=== PATIENT | male | born 1975 | race Caucasian/White ===

== ENCOUNTER 2020-04-16 19:05 | Inpatient (IN) | payer SELFPAY ==
[~2020-04-16] VITALS: Ht 177.8 cm; Wt 139.3 kg
[2020-04-16 19:34] LABS: BASOPHILS % (AUTO) 0.8 % (0.0-5.0); EOSINOPHILS % (AUTO) 2.3 % (0.0-8.0); HEMATOCRIT 46.8 % (42-54); LYMPHOCYTES % (AUTO) 21.7 % (21.0-51.0); MEAN CORPUSCULAR HEMOGLOBIN 31.2 pg (27.0-33.0); MEAN CORPUSCULAR HGB CONC 35.3 g/dL (32.0-36.0); MEAN CORPUSCULAR VOLUME 88.5 fL (79-99); MONOCYTES % (AUTO) 10.3 % (3.0-13.0); NEUTROPHILS % (AUTO) 64.4 % (40.0-77.0); PLATELET COUNT (AUTO) 145 K/uL (130-400); RED BLOOD CELL COUNT(AUTO) 5.29 MIL/uL (4.50-6.20); RED CELL DISTRIBUTION WIDTH 12.1 % (11.0-15.5); WHITE BLOOD COUNT (AUTO) 8.8 K/uL (4.8-10.8)
[2020-04-16 19:44] LABS: CREATININE 1.1 mg/dL (0.5-1.5)
[2020-04-16 19:49] LABS: ALBUMIN 3.2 g/dL (3.5-5.0); BILIRUBIN,TOTAL 0.6 mg/dL (0.2-1.0); TOTAL PROTEIN, SERUM 7.4 g/dL (6.0-8.3)
[2020-04-16 19:50] LABS: INR 0.98 (0.85-1.15); PROTHROMBIN TIME 10.6 SEC (9.6-11.6)
[2020-04-16] MEDS ORDERED: VANCOMYCIN 1GM+NS 250ML 250 ML IV ONE (19:58)
[2020-04-16] MEDS ORDERED: IOHEXOL-350 50ML VIAL IV ONE (20:15)
[2020-04-16] MEDS ORDERED: ZOLPIDEM TARTRATE 5 MG TAB PO PRN (23:00)
[2020-04-16] MEDS ORDERED: VANCOMYCIN PROTOCOL PER PHARMACY IV PRN (23:00)
[2020-04-16] MEDS ORDERED: DIPHENHYDRAMINE HCL 25 MG CAPSULE PO PRN (23:00)
[2020-04-16] MEDS ORDERED: ONDANSETRON HCL 4 MG/2 ML VIAL IV PRN (23:00)
[2020-04-16] MEDS ORDERED: DiphenhydrAMINE HCL 50 MG/ML VIAL IV PRN (23:00)
[2020-04-16] MEDS ORDERED: HYDRALAZINE HCL 20 MG/ML VIAL IV PRN (23:00)
[2020-04-16] MEDS ORDERED: ACETAMINOPHEN 325 MG TAB PO PRN ×2 (23:00)
[2020-04-16] MEDS ORDERED: LACTULOSE 20 GM/30 ML UDCUP PO PRN (23:00)
[2020-04-16] MEDS ORDERED: ACETAMINOPHEN-CODEINE 300/30MG TAB PO PRN ×2 (23:00)
[2020-04-16] MEDS ORDERED: GUAIFENESIN-DM 200/20 MG 10 ML PO PRN (23:00)
[2020-04-16] MEDS ORDERED: MAG HYDROX/AL HYDROX/SIMETH ES 30 ML SUSP UDCUP PO PRN (23:00)
[2020-04-16] MEDS ORDERED: NITROGLYCERIN 0.4 MG SL TAB SL PRN (23:00)
[2020-04-16 23:15] LABS: HEMOGLOBIN A1C 8.9 % (4.0-6.0)
[2020-04-16] MEDS ORDERED: ZOSYN 3.375GM+NS 50ML 50 ML IV ONE (23:19)
[2020-04-16 23:53] LABS: APPEARANCE,URINE Clear (CLEAR); BILIRUBIN,URINE Negative (NEGATIVE); COLOR,URINE Yellow (YELLOW); GLUCOSE, URINE (UA) >=1000 mg/dL (NEGATIVE); KETONES,URINE Negative (NEGATIVE); LEUKOCYTE ESTERASE ,URINE Negative (NEGATIVE); NITRATE,URINE Negative (NEGATIVE); OCCULT BLOOD,URINE Negative (NEGATIVE); PH,URINE 5.5 (5.0-8.0); PROTEIN,URINE Negative (NEGATIVE)
[2020-04-17] VITALS (7 sets, daily range): BP systolic 118–163; BP diastolic 70–95
[2020-04-17 00:02] LABS: BACTERIA,URINE None Seen /HPF (None Seen); RBC,URINE None Seen /HPF (0-1); SQUAMOUS EPITHELIAL CELL,UR Rare /HPF (0-2); WBC,URINE None Seen /HPF (0-1); YEAST,URINE BUDDING None Seen /HPF (None Seen)
--- NOTE | 2020-04-17 00:15 | NUR ---
ASSESSMENT NOTE PATIENT AWAKE, ALERT, OX3, NO SOB, NO C/O PAIN AT TIME, DRESSING RIGHT POSTERIOR NECK INTACT , REDNESS WITH ENDURATION, NO DRAINAGE NOTED AT THIS TIME, TEACH PLAN OF CARE AND EXPECTED OUTCOME, PATIENT VERBALIZES UNDERSTANDING VIA TEACH BACK
[2020-04-17] MEDS: ZOSYN 3.375GM+NS 50ML 50 ML IV SCH ×3 (04:33→20:34)
[2020-04-17] MEDS ORDERED: COMPOUND IV REFRIGERATED 1 EACH IVSOLN MISC PRN (06:30)
[2020-04-17] MEDS: FAMOTIDINE 20MG TAB 20 MG TAB PO SCH ×2 (08:19→19:26)
[2020-04-17] MEDS: ENOXAPARIN SODIUM 30 MG/0.3 ML SQ SCH (08:20)
--- NOTE | 2020-04-17 08:45 | NUR ---
DR. GONZALEZ AWARE OF CONSULT
--- NOTE | 2020-04-17 08:48 | NUR ---
DR. HENAO AWARE OF CONSULT
[2020-04-17] MEDS: VANCOMYCIN 1.5 GM in SODIUM CHLORIDE 0.9% 250 ML IV SCH ×2 (09:22→19:26)
[2020-04-17] MEDS ORDERED: GLUCAGON 1MG KIT 1 MG ML IM PRN (10:15)
[2020-04-17] MEDS ORDERED: DEXTROSE 50%-WATER 50 ML DISP.SYRIN IV PRN (10:15)
[2020-04-17] MEDS: INSULIN HUMULIN R 100 UNIT/ML 3ML SQ SCH ×3 (11:20→20:31)
--- NOTE | 2020-04-17 13:30 | NUR ---
MET WITH PATIENT AT BEDSIDE FOR DC PLANNING. STATES LIVING "WITH RELATIVES' RIGHT NOW, DECLINED OT GIVE MORE INFO. STATES HIS GIRLFRIEND ON FACE SHEET WILL PROVIDE TRANSPORT ON DISCHARGE. STATES INDEPENDENT, 'VERY ACTIVE', DRIVES. NO DME OR SERVICES. STATES HAS BEEN TOLD IN PAST THAT HE WAS DIABETIC BUT DOES NOT BELIEVE IT. SAYS HE WAS ABLE TO GET HIS SUGAR DOWN IN THE PAST AND CAN DO IT AGAIN DOES NOT HAVE A GLUCOMETER AND RAN OUT OF THE GLYBURIDE HE WAS PRESCRIBED SOME MONTHS AGO. STATES HIS SURGAR IS HIGH BECAUSE HE IS GOING THROUGH A CUSTODY DEE WITH HIS EX AND THAT IS WHY HI SUGAR IS UP. WHEN I SUGGESTED [facility] FOR ASSISTANCE WITH A PLAN AND A GLUCOMETER, PATIENT RAISED HIS VOICE TO CM. PT DECLINED [employer] RESOURCE PACKET. CM EXPLAINED GOOD RX. PATIENT APPEARED NOT TO BE INTERESTED. CM TO FOLLOW UP. , Addendum: 04/17/20 at 1814 by AGA REYNAGA RN CM Amended: Links added.
--- NOTE | 2020-04-17 20:00 | NUR ---
culture anerobic culture obtained from abcess right postrerior neck , minimal drainage obtained of serous purulent drainage, labeled and sent to lab, teach patient plan of care and expected outcome, patient verbalizes understanding via teach back
[2020-04-18 04:00] VITALS: BP 130/65
[2020-04-18] MEDS: ZOSYN 3.375GM+NS 50ML 50 ML IV SCH (04:34)
[2020-04-18] MEDS: INSULIN HUMULIN R 100 UNIT/ML 3ML SQ SCH ×4 (06:09→20:33)
[2020-04-18 06:15] LABS: BASOPHILS % (AUTO) 1.3 % (0.0-5.0); EOSINOPHILS % (AUTO) 3.4 % (0.0-8.0); HEMATOCRIT 47.1 % (42-54); LYMPHOCYTES % (AUTO) 28.1 % (21.0-51.0); MEAN CORPUSCULAR HEMOGLOBIN 30.7 pg (27.0-33.0); MEAN CORPUSCULAR HGB CONC 34.8 g/dL (32.0-36.0); MONOCYTES % (AUTO) 9.2 % (3.0-13.0); NEUTROPHILS % (AUTO) 57.6 % (40.0-77.0); PLATELET COUNT (AUTO) 173 K/uL (130-400); RED BLOOD CELL COUNT(AUTO) 5.35 MIL/uL (4.50-6.20); RED CELL DISTRIBUTION WIDTH 12.2 % (11.0-15.5); WHITE BLOOD COUNT (AUTO) 6.8 K/uL (4.8-10.8)
[2020-04-18 06:38] LABS: CARBON DIOXIDE 25 mmol/L (21-32); CHLORIDE 104 mmol/L (101-111); CREATININE 0.8 mg/dL (0.5-1.5); GLOMERULAR FILTR. RATE CALC 112 mL/min (>60); GLUCOSE,RANDOM 153 mg/dL (70-105); POTASSIUM 3.8 mmol/L (3.5-5.1); SODIUM SERUM 137 mmol/L (136-145); UREA NITROGEN, BLOOD 8 mg/dL (7-18)
[2020-04-18 08:05] VITALS: BP 126/93
--- NOTE | 2020-04-18 08:45 | NUR ---
DR. EARLENE KENT ROUNDING ON PATIENT. SPOKE TO PATIENT AND STATES THAT NO SURGICAL PROCEDURE INDICATED AT THIS TIME AND RECOMMENDS TO CONTINUE ANTIBIOTIC THERAPY.
[2020-04-18] MEDS: FAMOTIDINE 20MG TAB 20 MG TAB PO SCH ×2 (08:52→19:45)
[2020-04-18] MEDS: ENOXAPARIN SODIUM 30 MG/0.3 ML SQ SCH (08:52)
[2020-04-18] MEDS: VANCOMYCIN 1.75 GM in SODIUM CHLORIDE 0.9% 250 ML IV SCH ×2 (09:22→19:45)
[2020-04-18 11:21] VITALS: BP 141/78
[2020-04-18 16:06] VITALS: BP 145/96
[2020-04-18 20:07] VITALS: BP 154/84
[2020-04-18 23:51] VITALS: BP 125/74
[2020-04-19 04:13] VITALS: BP 134/80
[2020-04-19 05:36] LABS: BASOPHILS % (AUTO) 0.9 % (0.0-5.0); EOSINOPHILS % (AUTO) 3.4 % (0.0-8.0); HEMATOCRIT 47.4 % (42-54); LYMPHOCYTES % (AUTO) 30.4 % (21.0-51.0); MEAN CORPUSCULAR HGB CONC 34.8 g/dL (32.0-36.0); MEAN CORPUSCULAR VOLUME 89.1 fL (79-99); NEUTROPHILS % (AUTO) 56.9 % (40.0-77.0); PLATELET COUNT (AUTO) 168 K/uL (130-400); RED BLOOD CELL COUNT(AUTO) 5.32 MIL/uL (4.50-6.20); RED CELL DISTRIBUTION WIDTH 11.9 % (11.0-15.5); WHITE BLOOD COUNT (AUTO) 5.6 K/uL (4.8-10.8)
[2020-04-19 05:45] LABS: CREATININE 0.9 mg/dL (0.5-1.5); POTASSIUM 4.1 mmol/L (3.5-5.1)
[2020-04-19] MEDS: INSULIN HUMULIN R 100 UNIT/ML 3ML SQ SCH ×2 (06:34→11:44)
[2020-04-19 07:44] VITALS: BP 143/84
[2020-04-19] MEDS: FAMOTIDINE 20MG TAB 20 MG TAB PO SCH (08:58)
[2020-04-19] MEDS: VANCOMYCIN 1.75 GM in SODIUM CHLORIDE 0.9% 250 ML IV SCH (08:58)
[2020-04-19] MEDS: ENOXAPARIN SODIUM 30 MG/0.3 ML SQ SCH (09:01)
[2020-04-19] MEDS ORDERED: CEFUROXIME AXETIL 250 MG TABLET PO SCH (10:30)
[2020-04-19] MEDS ORDERED: CEFU500T67 PO (11:32)
[2020-04-19] MEDS ORDERED: GLYB2.5T5 PO (11:32)
[2020-04-19 12:01] VITALS: BP 142/70
--- NOTE | 2020-04-19 12:30 | NUR ---
DISCHARGE DISCHARGE TEACHING PROVIDED TO PATIENT REGARDING RX (CEFUROXIME, GLYBURIDE), CELLULITIS HOME CARE, AND DIABETES MANAGEMENT AND DIET RECOMMENDATIONS. INFORMED PATIENT TO F/U WITH PRIMARY MD IN 7 DAYS FOR CONTINUATION OF CARE. PATIENT DOES NOT HAVE A PRIMARY DOCTOR AT THIS TIME. LIST OF FAMILY DOCTORS PROVIDED TO PATIENT WITH DISCHARGE PAPERWORK. ORIGINAL RX FOR CEFUROXIME AND GLYBURIDE PROVIDED TO PATIENT WITH DISCHARGE PAPERWORK. PATIENT VERBALIZED UNDERSTANDING OF DISCHARGE TEACHING. REMOVED 20G IV FROM RIGHT HAND, CATHETER TIP INTACT. PATIENT TO BE DRIVEN HOME BY HIS .
--- NOTE | 2020-04-21 15:16 | NUR ---
Transitional Care - Post Discharge Note Dialed number on file. Female that answered stated she knows no one by that name. Addendum: 04/21/20 at 1519 by BERNICE KIRK Amended: Links added.
== END 2020-04-19 13:00 | disposition home or self-care (01) | DRG 603 ==
LOC: EDH 19:05 → EDHIP 19:06 → 3AH 23:53
PROVIDERS: ADMIT Family Medicine; ATTEND Family Medicine
DX: L02.11 Cutaneous abscess of neck (principal); Z68.41 Body mass index [BMI] 40.0-44.9, adult; L03.221 Cellulitis of neck; I10 Essential (primary) hypertension; F17.200 Nicotine dependence, unspecified, uncomplicated; E66.01 Morbid (severe) obesity due to excess calories; B95.61 Methicillin susceptible Staphylococcus aureus infection as the cause of diseases classified elsewhere; E11.65 Type 2 diabetes mellitus with hyperglycemia; G47.33 Obstructive sleep apnea (adult) (pediatric); Z90.49 Acquired absence of other specified parts of digestive tract
CPT/HCPCS: 36415; 70491; 71045; 80048; 80053; 80202; 81001; 82550; 82948; 83036; 84145; 84484; 85025; 85610; 85730; 87070; 87076; 87077; 87186; 93005; G0378; J1650; J1815; J2543; J3370; J7050; Q9967

== ENCOUNTER 2022-06-23 14:46 | Emergency (ER) | payer OTHER ==
[~2022-06-23] VITALS: Ht 177.8 cm; Wt 127.0 kg
[~2022-06-23 14:46] MED LIST: CEFU500T67 PO; GLYB2.5T5 PO
[2022-06-23 15:19] VITALS: BP 169/100
[2022-06-23 16:10] LABS: BASOPHILS % (AUTO) 0.9 % (0.0-5.0); EOSINOPHILS % (AUTO) 2.1 % (0.0-8.0); HEMATOCRIT 52.3 % (42-54); LYMPHOCYTES % (AUTO) 19.9 % (21.0-51.0); MEAN CORPUSCULAR HEMOGLOBIN 30.8 pg (27.0-33.0); MEAN CORPUSCULAR HGB CONC 35.4 g/dL (32.0-36.0); MONOCYTES % (AUTO) 6.6 % (3.0-13.0); NEUTROPHILS % (AUTO) 69.5 % (40.0-77.0); PLATELET COUNT (AUTO) 167 K/uL (130-400); RED BLOOD CELL COUNT(AUTO) 6.01 MIL/uL (4.50-6.20); RED CELL DISTRIBUTION WIDTH 12.8 % (11.0-15.5); WHITE BLOOD COUNT (AUTO) 6.7 K/uL (4.8-10.8)
[2022-06-23 16:18] LABS: APPEARANCE,URINE CLEAR (CLEAR); BILIRUBIN,URINE NEGATIVE (NEGATIVE); COLOR,URINE LIGHT-YELLOW (YELLOW); GLUCOSE, URINE (UA) >=1000 mg/dL (NEGATIVE); KETONES,URINE NEGATIVE (NEGATIVE); LEUKOCYTE ESTERASE ,URINE NEGATIVE Leu/uL (NEGATIVE); NITRATE,URINE NEGATIVE (NEGATIVE); OCCULT BLOOD,URINE NEGATIVE (NEGATIVE); PROTEIN,URINE 10 mg/dL (NEGATIVE); UROBILINOGEN,URINE 0.2 mg/dL (0.2-1.0)
[2022-06-23 16:25] LABS: CREATININE 0.8 mg/dL (0.5-1.5); POTASSIUM 4.3 mmol/L (3.5-5.1)
[2022-06-23 16:26] LABS: RBC,URINE 0-1 /HPF (0-1); SQUAMOUS EPITHELIAL CELL,UR RARE /HPF (0-2); WBC,URINE 0-1 /HPF (0-1)
[2022-06-23 16:30] LABS: ALBUMIN 3.4 g/dL (3.5-5.0); TOTAL PROTEIN, SERUM 7.8 g/dL (6.0-8.3)
[2022-06-23] MEDS ORDERED: 0.9%NACL 1000ML 1,000 ML IV ONE (16:30)
[2022-06-23] MEDS ORDERED: INSULIN HUMULIN R 100 UNIT/ML 3ML ONE (16:59)
[2022-06-23] MEDS ORDERED: INSULIN HUMULIN R 100 UNIT/ML 3ML IV ONE (17:00)
[2022-06-23] MEDS ORDERED: GLYB2.5T6 PO (17:45)
[2022-06-23] MEDS ORDERED: LISI5TAB21 PO (17:45)
[2022-06-23] MEDS ORDERED: CEPH500B PO (17:45)
[2022-06-23] MEDS ORDERED: SULF1TAB42 PO (17:45)
== END 2022-06-23 18:36 | disposition home or self-care (01) ==
LOC: EDH 14:46
DX: L02.01 Cutaneous abscess of face (principal); Z79.899 Other long term (current) drug therapy; Z79.84 Long term (current) use of oral hypoglycemic drugs; Z90.49 Acquired absence of other specified parts of digestive tract
CPT/HCPCS: 99283; 96374; 10060; 96361; 80053; 85025; 82948 ×2; 81001; 36415; J1815; J7030

== ENCOUNTER 2024-07-09 09:41 | Emergency (ER) | payer BC ==
[~2024-07-09] VITALS: Ht 177.8 cm; Wt 122.5 kg
[2024-07-09 09:41] VITALS: BP 176/103; PULSE 84; RESP 20; TEMP 97
[~2024-07-09 09:41] MED LIST changes: +CEPH500B PO; +GLYB2.5T6 PO; +LISI5TAB21 PO; +SULF1TAB42 PO
--- NOTE | 2024-07-09 10:30 | ERN ---
ED Note History of Present Illness Stated Complaint: ABSCESS Chief Complaint: Abscess Time Seen by MD: 09:42 Dictation: 49-year-old male with a history of HTN and DM presents to the ED for evaluation of abscess to right neck onset 1 day ago. Patient reports his blood glucose level was 256 mg/dL at home and states he has not been taking his blood pressure or diabetes medications for the past two years due to lack of insurance. Allergies: Coded Allergies: No Known Allergies (Unverified Allergy, Unknown, 04/17/20) Home Meds Active Scripts Glyburide (Glyburide 2.5MG Tab) 2.5 Mg Tab, 2.5 MG PO DAILY for 14 Days, #14 TAB Prov:BECKA GEORGE V [employer] 06/23/22 Lisinopril (Lisinopril) 5 Mg Tablet, 5 MG PO DAILY for 14 Days, #14 TAB Prov:BECKA GEORGE [employer] 06/23/22 Cephalexin Monohydrate (Keflex) 500 Mg Cap, 500 MG PO QID for 7 Days, #28 CAP Prov:BECKA [employer] 06/23/22 Sulfamethoxazole/Trimethoprim (Bactrim Ds Tablet) 1 Each Tablet, 1 TAB PO BID for 7 Days, #14 TAB 0 Refills Prov:BECKA GEORGE [employer] 06/23/22 Glyburide (Glyburide) 2.5 Mg Tablet, 2.5 MG PO DAILYBKFST for 30 Days, #30 TAB 0 Refills Prov:JAVI HAYES MD 04/19/20 Cefuroxime Axetil (Cefuroxime) 500 Mg Tablet, 500 MG PO BID for 10 Days, #20 TAB 0 Refills Prov:JAVI HAYES MD 04/19/20 Past Medical History Past Medical History: Diabetes-Type II, Hypertension Surgical History: Cholecystectomy Review of System Dictation Constitutional: Positive for neck abscess, hyperglycemia Negative for fever,chills, and weight loss Eyes: Negative for injury, pain,redness, and discharge ENT: Negative for injury,pain or swelling Cardiovascular: Negative for chest pain, palpitations, and edema Respiratory: Negative for shortness of breath, cough, and wheezing, Abdomen/GI: Negative for abdominal pain, nausea, vomiting, diarrhea, and constipation Back: Negative for injury and pain : Negative for injury, bleeding and discharge MS/Extremity: Negative for injury and deformity Skin: Negative for rash, and discoloration Initial Vital Sign VS Vital Signs Date Time Temp Pulse Resp B/P (MAP) Pulse Ox O2 Delivery O2 Flow Rate FiO2 07/09/24 09:41 97.0 84 20 176/103 97 Room Air 0 Physical Exam Dictation General: awake, alert, NAD Head/Face: Normocephalic, atraumatic Eyes: PERRL, EOMI, vision at baseline ENT: oral cavity clear, TMs clear, no signs of infection Neck: Trachea midline, supple, right-sided neck erythema, no induration Cardiovascular: RRR, normal S1/S2, No MRGs, no JVD Respiratory: CTAB, no respiratory distress, No rales or wheezes Abdomen: Soft, non-tender, non-distended, normal bowel sounds, no guarding or rebound. Skin: Warm, dry, normal turgor, no rash MS/Extremity: Pulses equal, no cyanosis, neurovascular intact, FROM Neuro: COAx4, GCS 15, strength 5/5, CN 2-12 intact, normal cerebellar exam, normal gait, Psych: Normal behavior, mood, and affect normal ED Course ED Course Vital Signs Date Time Temp Pulse Resp B/P (MAP) Pulse Ox O2 Delivery O2 Flow Rate FiO2 07/09/24 09:41 97.0 84 20 176/103 97 Room Air 0 Medical Decision Making MDM MDM: Differential diagnosis: Hyperglycemia, DM, noncompliant Risk of complication and/or morbidity or mortality of patient management: None Medications-Per medication reconciliation Need for hospitalization: Patient does not meet criteria for hospitalization. Need for emergency major/minor surgery: No There are no social concerns with this patient. Prescription drug management Prescriptions will include symptomatic care I independently interpreted the test that were performed, results were reviewed by me and considered findings on radiology if ordered. DX & DISP Disposition: Discharge Departure Impression: Primary Impression: Hyperglycemia Condition: Stable Referrals: LIZA FREED (PCP) MEENAKSHI MANDEL MD Jul 09, 2024 10:30
--- NOTE | 2024-07-09 11:43 | NUR ---
per pt eloped and was unwilling to wait for rx after assesment
== END 2024-07-09 11:45 | disposition left against medical advice (07) ==
LOC: EDH 09:41
DX: E11.65 Type 2 diabetes mellitus with hyperglycemia (principal); I10 Essential (primary) hypertension; Z79.84 Long term (current) use of oral hypoglycemic drugs; Z79.899 Other long term (current) drug therapy; Z90.49 Acquired absence of other specified parts of digestive tract
CPT/HCPCS: 99281